=== PATIENT | male | born 1940 | race Hispanic/Latino ===

== ENCOUNTER 2017-08-09 00:21 | Emergency (ER) | payer MEDICARE ==
[~2017-08-09 00:21] MED LIST: ACET-2247 PO; ALLO100T PO; ALPR0.5T PO; AMLO10TA2 PO; BENZ1LOZ68 MM; DOCU100T PO; FURO80TA3 PO; GUAI-1197 PO; ISOS60TA4 PO; LACT10SO9 PO; LORA10TA7 PO; LOSA50TA37 PO; METO-391 PO; MIRT7.5T11 PO; OMEP20TA25 PO; PERID15L MM; PROM25TA7 PO; SPIR25TA4 PO; TAMS-1 PO; TRAM50TA4 PO; TRIA15OI6 TP
[2017-08-09] MEDS ORDERED: ACETAMINOPHEN-CODEINE 300/30MG TAB ONE (01:14)
[2017-08-09 01:20] LABS: BASOPHILS % (AUTO) 0.6 % (0.0-5.0); EOSINOPHILS % (AUTO) 3.1 % (0.0-8.0); HEMATOCRIT 32.6 % (42-54); LYMPHOCYTES % (AUTO) 7.7 % (21.0-51.0); MEAN CORPUSCULAR HEMOGLOBIN 31.2 pg (27.0-33.0); MEAN CORPUSCULAR HGB CONC 34.1 g/dL (32.0-36.0); MEAN CORPUSCULAR VOLUME 91.5 fL (79-99); MONOCYTES % (AUTO) 8.4 % (3.0-13.0); NEUTROPHILS % (AUTO) 80.2 % (40.0-77.0); PLATELET COUNT (AUTO) 158 K/uL (130-400); RED BLOOD CELL COUNT(AUTO) 3.56 MIL/uL (4.50-6.20); RED CELL DISTRIBUTION WIDTH 14.8 % (11.0-15.5); WHITE BLOOD COUNT (AUTO) 11.4 K/uL (4.8-10.8)
[2017-08-09 01:28] LABS: CREATININE 1.7 mg/dL (0.5-1.5); POTASSIUM 3.9 mmol/L (3.5-5.1)
[2017-08-09 01:32] LABS: INR 3.12 (0.85-1.15); PARTIAL THROMBOPLASTIN TIME 43.4 SEC (26.3-35.5)
[2017-08-09] MEDS ORDERED: SODIUM CHLORIDE 0.9% 1000ML 1,000 ML IV ONE (02:19)
== END 2017-08-09 06:01 | disposition home or self-care (01) ==
LOC: EDH 00:21
DX: S70.01XA Contusion of right hip, initial encounter (principal); I11.0 Hypertensive heart disease with heart failure; I50.9 Heart failure, unspecified; E07.9 Disorder of thyroid, unspecified; E11.9 Type 2 diabetes mellitus without complications; Z79.01 Long term (current) use of anticoagulants; Z79.4 Long term (current) use of insulin; I48.91 Unspecified atrial fibrillation; K21.9 Gastro-esophageal reflux disease without esophagitis; W18.39XA Other fall on same level, initial encounter; Y93.01 Activity, walking, marching and hiking; Y92.89 Other specified places as the place of occurrence of the external cause; Y99.8 Other external cause status
CPT/HCPCS: 36415; 70450; 72125; 72192; 73552; 80048; 85025; 85610; 85730; 99285; J7030

== ENCOUNTER → 2017-08-11 | Outpatient (CLI) | payer MEDICARE ==
[~2017-08-11] MED LIST changes: +BENZ-51 PO; +CYCL30DR OP; +FERR1TAB54 PO; +GUAI100S97 PO; +LANO3.5O OP; +LEVO112T7 PO; +MECL-111 PO
== END | disposition home or self-care (01) ==
LOC: OIH 15:54
PROVIDERS: ATTEND Internal Medicine
DX: S89.91XA Unspecified injury of right lower leg, initial encounter (principal); M17.11 Unilateral primary osteoarthritis, right knee; X58.XXXA Exposure to other specified factors, initial encounter; Y93.89 Activity, other specified; Y92.89 Other specified places as the place of occurrence of the external cause; Y99.8 Other external cause status
CPT/HCPCS: 73560

== ENCOUNTER 2017-12-16 20:05 | Inpatient (IN) | payer MEDICARE ==
[~2017-12-16] VITALS: Ht 167.6 cm; Wt 90.3 kg
[~2017-12-16 20:05] MED LIST changes: -BENZ-51 PO; -CYCL30DR OP; -FERR1TAB54 PO; -GUAI100S97 PO; -LANO3.5O OP; -LEVO112T7 PO; -MECL-111 PO; -SPIR25TA4 PO; +SPIR25TA6 PO
[2017-12-16 20:24] LABS: BASOPHILS % (AUTO) 0.7 % (0.0-5.0); EOSINOPHILS % (AUTO) 2.4 % (0.0-8.0); HEMATOCRIT 36.7 % (42-54); LYMPHOCYTES % (AUTO) 9.9 % (21.0-51.0); MEAN CORPUSCULAR HGB CONC 33.3 g/dL (32.0-36.0); MEAN CORPUSCULAR VOLUME 90.1 fL (79-99); MONOCYTES % (AUTO) 10.2 % (3.0-13.0); NEUTROPHILS % (AUTO) 76.8 % (40.0-77.0); PLATELET COUNT (AUTO) 178 K/uL (130-400); RED BLOOD CELL COUNT(AUTO) 4.08 MIL/uL (4.50-6.20); RED CELL DISTRIBUTION WIDTH 16.1 % (11.0-15.5); WHITE BLOOD COUNT (AUTO) 13.6 K/uL (4.8-10.8)
[2017-12-16] MEDS ORDERED: IPRATROPIUM/ALBUTEROL SULFATE 3 ML SOLUTION IH ONE (20:27)
[2017-12-16] MEDS ORDERED: ACETAMINOPHEN-CODEINE ELIXIR 5 ML UDCUP ONE (20:33)
[2017-12-16] MEDS ORDERED: LEVOFLOXACIN 750 MG/D5W 150 ML 150 ML ONE (20:33)
[2017-12-16 20:34] LABS: CARBON DIOXIDE 29 mmol/L (21-32); CHLORIDE 101 mmol/L (101-111); CREATININE 1.7 mg/dL (0.5-1.5); GLOMERULAR FILTR. RATE CALC 42 mL/min (>60); GLUCOSE,RANDOM 102 mg/dL (70-105); SODIUM SERUM 138 mmol/L (136-145); UREA NITROGEN, BLOOD 64 mg/dL (7-18)
[2017-12-16 20:36] LABS: INR 1.08 (0.85-1.15); PARTIAL THROMBOPLASTIN TIME 28.3 SEC (26.3-35.5); PROTHROMBIN TIME 11.3 SEC (9.6-11.6)
[2017-12-16 20:48] LABS: ALANINE AMINOTRANSFERASE 37 U/L (12-78); ALBUMIN 3.4 g/dL (3.5-5.0); ASPARTATE AMINOTRANSFERASE 18 U/L (10-37); BILIRUBIN,TOTAL 0.6 mg/dL (0.2-1.0); CREATINE KINASE MB 1.4 ng/mL (0.5-3.6); CREATINE KINASE, TOTAL 63 U/L (21-232); MYOGLOBIN 127 ng/mL (10-92); TOTAL PROTEIN, SERUM 7.9 g/dL (6.0-8.3); TROPONIN I < 0.04 ng/mL (0.00-0.06)
[2017-12-16 20:54] LABS: APPEARANCE,URINE Clear (CLEAR); BILIRUBIN,URINE Negative (NEGATIVE); COLOR,URINE Yellow (YELLOW); GLUCOSE, URINE (UA) Negative (NEGATIVE); KETONES,URINE Negative (NEGATIVE); LEUKOCYTE ESTERASE ,URINE Negative (NEGATIVE); NITRATE,URINE Negative (NEGATIVE); OCCULT BLOOD,URINE Negative (NEGATIVE); PROTEIN,URINE Negative (NEGATIVE); UROBILINOGEN,URINE 0.2 mg/dL (0.2-1.0)
[2017-12-16] MEDS ORDERED: METHYLPREDNISOLONE SOD SUCC 125MG/2ML VIAL ONE (22:29)
[2017-12-16] MEDS ORDERED: SODIUM CHLORIDE 0.9% 1000ML 1,000 ML IV ONE (23:00)
[2017-12-16 23:21] VITALS: BP 142/93
[2017-12-16] MEDS ORDERED: MINERAL OIL OP PRN (23:30)
[2017-12-16] MEDS ORDERED: ACETAMINOPHEN 325 MG TAB PO PRN (23:30)
[2017-12-16] MEDS ORDERED: TRAMADOL HCL 50 MG TABLET PO PRN (23:30)
[2017-12-16] MEDS ORDERED: DOCUSATE SODIUM 100 MG CAP PO PRN (23:30)
[2017-12-16] MEDS ORDERED: MECLIZINE HCL 25 MG TABLET PO PRN (23:30)
[2017-12-16] MEDS ORDERED: PETROLATUM WHITE OP PRN (23:30)
[2017-12-16] MEDS ORDERED: GUAIFENESIN SUGAR-FREE 100 MG/5 ML UDCUP PO PRN (23:30)
[2017-12-16] MEDS: IPRATROPIUM/ALBUTEROL SULFATE 3 ML SOLUTION IH SCH (23:32)
[2017-12-16] MEDS ORDERED: BENZ-51 PO (23:36)
[2017-12-16] MEDS ORDERED: CYCL30DR OP (23:36)
[2017-12-16] MEDS ORDERED: LORA10TA7 PO (23:36)
[2017-12-16] MEDS ORDERED: FERR1TAB54 PO (23:36)
[2017-12-16] MEDS ORDERED: LANO3.5O OP (23:36)
[2017-12-16] MEDS ORDERED: MECL-111 PO (23:36)
[2017-12-16] MEDS ORDERED: LEVO112T7 PO (23:36)
[2017-12-16] MEDS ORDERED: GUAI100S97 PO (23:36)
[2017-12-16] MEDS: GUAIFENESIN-CODEINE 5 ML SYRUP PO PRN (23:55)
[2017-12-17] MEDS ORDERED: GLUCAGON 1MG KIT 1 MG ML IM PRN
[2017-12-17] MEDS ORDERED: DEXTROSE 50%-WATER 50 ML DISP.SYRIN IV PRN
[2017-12-17 04:20] VITALS: BP 103/40
[2017-12-17 05:06] LABS: HEMATOCRIT 36.3 % (42-54); MEAN CORPUSCULAR HEMOGLOBIN 30.5 pg (27.0-33.0); MEAN CORPUSCULAR HGB CONC 33.6 g/dL (32.0-36.0); MEAN CORPUSCULAR VOLUME 90.9 fL (79-99); PLATELET COUNT (AUTO) 145 K/uL (130-400); RED CELL DISTRIBUTION WIDTH 16.4 % (11.0-15.5); WHITE BLOOD COUNT (AUTO) 11.1 K/uL (4.8-10.8)
[2017-12-17 05:09] LABS: CREATININE 1.6 mg/dL (0.5-1.5); POTASSIUM 3.8 mmol/L (3.5-5.1)
[2017-12-17] MEDS: IPRATROPIUM/ALBUTEROL SULFATE 3 ML SOLUTION IH SCH ×4 (05:51→23:25)
[2017-12-17] MEDS: LEVOTHYROXINE 112 MCG TABLET PO SCH (06:07)
[2017-12-17] MEDS: INSULIN LISPRO 100 UNIT/ML 3ML SQ SCH ×4 (06:08→20:49)
[2017-12-17 07:00] VITALS: BP 132/66
[2017-12-17] MEDS: TAMSULOSIN HCL 0.4 MG CAP.ER.24H PO SCH (08:29)
[2017-12-17] MEDS: AMLODIPINE BESYLATE 5 MG TAB PO SCH (08:29)
[2017-12-17] MEDS: FUROSEMIDE 80 MG TABLET PO SCH ×2 (08:30→20:49)
[2017-12-17] MEDS: PANTOPRAZOLE SODIUM 40 MG TABLET.DR PO SCH (08:30)
[2017-12-17] MEDS: LORATADINE 10 MG TABLET PO SCH (08:30)
[2017-12-17] MEDS: ALLOPURINOL 100 MG TABLET PO SCH (08:31)
[2017-12-17] MEDS: ISOSORBIDE MONO 60 MG TAB.SR PO SCH (08:31)
[2017-12-17] MEDS: ***HM***Metoprolol Succinate 50 MG PO SCH (08:33)
[2017-12-17] MEDS: FERROUS FUMARATE PO SCH (08:34)
[2017-12-17] MEDS: FOLIC ACID PO SCH (08:34)
[2017-12-17] MEDS: ***HM***(Cyclosporine (Restasis) 1 EACH) OP SCH ×2 (08:34→20:50)
[2017-12-17 11:00] VITALS: BP 106/76
[2017-12-17] MEDS: GUAIFENESIN-CODEINE 5 ML SYRUP PO PRN ×2 (11:05→20:57)
[2017-12-17 15:00] VITALS: BP 150/91
[2017-12-17 20:00] VITALS: BP 138/72
[2017-12-17] MEDS: ALPRAZOLAM 0.5 MG TABLET PO SCH (20:49)
[2017-12-17] MEDS: MIRTAZAPINE 15 MG TABLET PO SCH (20:49)
[2017-12-17 23:46] VITALS: BP 124/78
[2017-12-18] MEDS: GUAIFENESIN-CODEINE 5 ML SYRUP PO PRN ×3 (03:16→22:16)
[2017-12-18 03:49] VITALS: BP 148/62
[2017-12-18] MEDS: LEVOTHYROXINE 112 MCG TABLET PO SCH (06:21)
[2017-12-18] MEDS: BENZONATATE 100 MG CAPSULE PO PRN ×2 (06:21→16:49)
[2017-12-18] MEDS: IPRATROPIUM/ALBUTEROL SULFATE 3 ML SOLUTION IH SCH ×4 (06:21→23:24)
[2017-12-18] MEDS: INSULIN LISPRO 100 UNIT/ML 3ML SQ SCH ×4 (06:24→21:00)
[2017-12-18 07:00] VITALS: BP 136/69
[2017-12-18] MEDS: ***HM***Metoprolol Succinate 50 MG PO SCH (09:00)
[2017-12-18] MEDS: ***HM***(Cyclosporine (Restasis) 1 EACH) OP SCH ×2 (09:00→21:00)
[2017-12-18] MEDS: FOLIC ACID PO SCH (09:00)
[2017-12-18] MEDS: FERROUS FUMARATE PO SCH (09:00)
[2017-12-18 12:00] VITALS: BP 153/77
[2017-12-18 16:11] VITALS: BP 142/61
[2017-12-18] MEDS: FUROSEMIDE 80 MG TABLET PO SCH ×2 (16:48→22:15)
[2017-12-18] MEDS: TAMSULOSIN HCL 0.4 MG CAP.ER.24H PO SCH (16:48)
[2017-12-18] MEDS: AMLODIPINE BESYLATE 5 MG TAB PO SCH (16:49)
[2017-12-18] MEDS: ISOSORBIDE MONO 60 MG TAB.SR PO SCH (16:49)
[2017-12-18] MEDS: LORATADINE 10 MG TABLET PO SCH (16:49)
[2017-12-18] MEDS: PANTOPRAZOLE SODIUM 40 MG TABLET.DR PO SCH (16:49)
[2017-12-18] MEDS: ALLOPURINOL 100 MG TABLET PO SCH (16:50)
[2017-12-18] MEDS: PREDNISONE 20 MG TABLET PO SCH (16:50)
[2017-12-18 20:24] VITALS: BP 124/63
[2017-12-18] MEDS: ALPRAZOLAM 0.5 MG TABLET PO SCH (21:00)
[2017-12-18] MEDS: MIRTAZAPINE 15 MG TABLET PO SCH (22:16)
[2017-12-18] MEDS: LEVOFLOXACIN 500 MG/D5W 100 ML 100 ML IV SCH (22:17)
[2017-12-18] MEDS: ENOXAPARIN SODIUM 100 MG/1 ML SQ SCH (22:28)
[2017-12-18 23:00] VITALS: BP 122/77
[2017-12-19 03:44] VITALS: BP 130/65
[2017-12-19 06:18] LABS: INR 1.01 (0.85-1.15); PROTHROMBIN TIME 10.6 SEC (9.6-11.6)
[2017-12-19 06:25] LABS: BILIRUBIN,TOTAL 0.2 mg/dL (0.2-1.0); CREATININE 1.5 mg/dL (0.5-1.5); POTASSIUM 3.9 mmol/L (3.5-5.1); TOTAL PROTEIN, SERUM 7.1 g/dL (6.0-8.3)
[2017-12-19] MEDS: IPRATROPIUM/ALBUTEROL SULFATE 3 ML SOLUTION IH SCH ×3 (06:29→18:08)
[2017-12-19] MEDS: LEVOTHYROXINE 112 MCG TABLET PO SCH (06:50)
[2017-12-19] MEDS: INSULIN LISPRO 100 UNIT/ML 3ML SQ SCH ×4 (06:55→21:58)
[2017-12-19 06:56] LABS: HEMATOCRIT 35.4 % (42-54); MEAN CORPUSCULAR HEMOGLOBIN 30.9 pg (27.0-33.0); MEAN CORPUSCULAR HGB CONC 33.9 g/dL (32.0-36.0); NUCLEATED RED BLOOD CELLS 0.1 % (0.0-0.19); PLATELET COUNT (AUTO) 157 K/uL (130-400); RED BLOOD CELL COUNT(AUTO) 3.89 MIL/uL (4.50-6.20); WHITE BLOOD COUNT (AUTO) 12.1 K/uL (4.8-10.8)
[2017-12-19 08:00] VITALS: BP 145/79
[2017-12-19] MEDS: ***HM***Metoprolol Succinate 50 MG PO SCH (09:00)
[2017-12-19] MEDS: ***HM***(Cyclosporine (Restasis) 1 EACH) OP SCH ×2 (09:00→21:00)
[2017-12-19] MEDS: FERROUS FUMARATE PO SCH (09:00)
[2017-12-19] MEDS: FOLIC ACID PO SCH (09:00)
[2017-12-19] MEDS: GUAIFENESIN-CODEINE 5 ML SYRUP PO PRN ×3 (09:43→21:56)
[2017-12-19] MEDS: ISOSORBIDE MONO 60 MG TAB.SR PO SCH (09:44)
[2017-12-19] MEDS: ALLOPURINOL 100 MG TABLET PO SCH (09:44)
[2017-12-19] MEDS: PANTOPRAZOLE SODIUM 40 MG TABLET.DR PO SCH (09:44)
[2017-12-19] MEDS: PREDNISONE 20 MG TABLET PO SCH (09:44)
[2017-12-19] MEDS: TAMSULOSIN HCL 0.4 MG CAP.ER.24H PO SCH (09:44)
[2017-12-19] MEDS: AMLODIPINE BESYLATE 5 MG TAB PO SCH (09:45)
[2017-12-19] MEDS: FUROSEMIDE 80 MG TABLET PO SCH ×2 (09:45→21:55)
[2017-12-19] MEDS: LORATADINE 10 MG TABLET PO SCH (09:45)
[2017-12-19] MEDS: ENOXAPARIN SODIUM 100 MG/1 ML SQ SCH (09:46)
[2017-12-19 11:56] VITALS: BP 143/60
[2017-12-19 16:33] VITALS: BP 149/76
[2017-12-19] MEDS: WARFARIN SODIUM 2.5 MG TAB PO SCH (16:56)
[2017-12-19 20:30] VITALS: BP 129/62
[2017-12-19] MEDS: MIRTAZAPINE 15 MG TABLET PO SCH (21:55)
[2017-12-19] MEDS: ALPRAZOLAM 0.5 MG TABLET PO SCH (21:56)
[2017-12-19 23:00] VITALS: BP 138/66
[2017-12-20] MEDS: IPRATROPIUM/ALBUTEROL SULFATE 3 ML SOLUTION IH SCH ×4 (00:44→18:09)
[2017-12-20 04:23] VITALS: BP 140/58
[2017-12-20 05:55] LABS: INR 1.01 (0.85-1.15); PROTHROMBIN TIME 10.6 SEC (9.6-11.6)
[2017-12-20] MEDS: LEVOTHYROXINE 112 MCG TABLET PO SCH (06:52)
[2017-12-20] MEDS: INSULIN LISPRO 100 UNIT/ML 3ML SQ SCH ×4 (06:53→20:57)
[2017-12-20 08:12] VITALS: BP 153/62
[2017-12-20] MEDS: ***HM***(Cyclosporine (Restasis) 1 EACH) OP SCH ×2 (09:00→21:00)
[2017-12-20] MEDS: ALLOPURINOL 100 MG TABLET PO SCH (10:10)
[2017-12-20] MEDS: ENOXAPARIN SODIUM 100 MG/1 ML SQ SCH (10:10)
[2017-12-20] MEDS: TAMSULOSIN HCL 0.4 MG CAP.ER.24H PO SCH (10:10)
[2017-12-20] MEDS: FUROSEMIDE 80 MG TABLET PO SCH ×2 (10:10→20:55)
[2017-12-20] MEDS: AMLODIPINE BESYLATE 5 MG TAB PO SCH (10:11)
[2017-12-20] MEDS: PREDNISONE 20 MG TABLET PO SCH (10:11)
[2017-12-20] MEDS: LORATADINE 10 MG TABLET PO SCH (10:11)
[2017-12-20] MEDS: FOLIC ACID PO SCH (10:11)
[2017-12-20] MEDS: ISOSORBIDE MONO 60 MG TAB.SR PO SCH (10:11)
[2017-12-20] MEDS: FERROUS FUMARATE PO SCH (10:11)
[2017-12-20] MEDS: PANTOPRAZOLE SODIUM 40 MG TABLET.DR PO SCH (10:11)
[2017-12-20] MEDS: ***HM***Metoprolol Succinate 50 MG PO SCH (10:16)
[2017-12-20 12:00] VITALS: BP 148/62
[2017-12-20 16:00] VITALS: BP 143/71
[2017-12-20] MEDS: WARFARIN SODIUM 2.5 MG TAB PO SCH (16:38)
[2017-12-20 19:00] VITALS: BP 151/65
[2017-12-20] MEDS: ALPRAZOLAM 0.5 MG TABLET PO SCH (20:54)
[2017-12-20] MEDS: MIRTAZAPINE 15 MG TABLET PO SCH (20:55)
[2017-12-20] MEDS: LEVOFLOXACIN 500 MG/D5W 100 ML 100 ML IV SCH (20:55)
[2017-12-21] VITALS: BP 137/62
[2017-12-21] MEDS: IPRATROPIUM/ALBUTEROL SULFATE 3 ML SOLUTION IH SCH ×5 (00:37→23:34)
[2017-12-21 04:00] VITALS: BP 144/61
[2017-12-21] MEDS: INSULIN LISPRO 100 UNIT/ML 3ML SQ SCH ×4 (06:23→20:53)
[2017-12-21 06:37] LABS: PROTHROMBIN TIME 10.5 SEC (9.6-11.6)
[2017-12-21] MEDS: LEVOTHYROXINE 112 MCG TABLET PO SCH (06:37)
[2017-12-21 08:00] VITALS: BP 148/75
[2017-12-21] MEDS: ***HM***(Cyclosporine (Restasis) 1 EACH) OP SCH ×2 (09:00→21:00)
[2017-12-21] MEDS: PANTOPRAZOLE SODIUM 40 MG TABLET.DR PO SCH (09:49)
[2017-12-21] MEDS: AMLODIPINE BESYLATE 5 MG TAB PO SCH (09:49)
[2017-12-21] MEDS: PREDNISONE 20 MG TABLET PO SCH (09:49)
[2017-12-21] MEDS: ALLOPURINOL 100 MG TABLET PO SCH (09:49)
[2017-12-21] MEDS: LORATADINE 10 MG TABLET PO SCH (09:49)
[2017-12-21] MEDS: ISOSORBIDE MONO 60 MG TAB.SR PO SCH (09:50)
[2017-12-21] MEDS: FUROSEMIDE 80 MG TABLET PO SCH ×2 (09:50→20:46)
[2017-12-21] MEDS: TAMSULOSIN HCL 0.4 MG CAP.ER.24H PO SCH (09:52)
[2017-12-21] MEDS: FERROUS FUMARATE 324 MG TABLET PO SCH (09:55)
[2017-12-21] MEDS: ENOXAPARIN SODIUM 100 MG/1 ML SQ SCH (09:57)
[2017-12-21] MEDS: FAMOTIDINE 20MG TAB 20 MG TAB PO SCH (09:58)
[2017-12-21 12:00] VITALS: BP 118/74
[2017-12-21 16:00] VITALS: BP 127/58
[2017-12-21] MEDS: WARFARIN SODIUM 2.5 MG TAB PO SCH (16:37)
[2017-12-21] MEDS: GUAIFENESIN-CODEINE 5 ML SYRUP PO PRN (18:54)
[2017-12-21 19:00] VITALS: BP 133/78
[2017-12-21] MEDS: METOPROLOL TARTRATE 25 MG TAB PO SCH (20:45)
[2017-12-21] MEDS: MIRTAZAPINE 15 MG TABLET PO SCH (20:51)
[2017-12-21] MEDS: ALPRAZOLAM 0.5 MG TABLET PO SCH (21:00)
[2017-12-22] VITALS: BP 141/64
[2017-12-22 04:00] VITALS: BP 140/62
[2017-12-22 05:55] LABS: HEMATOCRIT 36.9 % (42-54); MEAN CORPUSCULAR HEMOGLOBIN 30.2 pg (27.0-33.0); MEAN CORPUSCULAR HGB CONC 33.6 g/dL (32.0-36.0); MEAN CORPUSCULAR VOLUME 89.9 fL (79-99); PLATELET COUNT (AUTO) 136 K/uL (130-400); RED CELL DISTRIBUTION WIDTH 16.5 % (11.0-15.5); WHITE BLOOD COUNT (AUTO) 11.5 K/uL (4.8-10.8)
[2017-12-22] MEDS: LEVOTHYROXINE 112 MCG TABLET PO SCH (06:05)
[2017-12-22] MEDS: INSULIN LISPRO 100 UNIT/ML 3ML SQ SCH ×4 (06:08→22:08)
[2017-12-22 06:16] LABS: CREATININE 1.4 mg/dL (0.5-1.5); POTASSIUM 3.5 mmol/L (3.5-5.1)
[2017-12-22 06:17] LABS: INR 0.98 (0.85-1.15); PROTHROMBIN TIME 10.3 SEC (9.6-11.6)
[2017-12-22] MEDS: IPRATROPIUM/ALBUTEROL SULFATE 3 ML SOLUTION IH SCH ×3 (06:32→19:36)
[2017-12-22 08:00] VITALS: BP 146/64
[2017-12-22] MEDS: PREDNISONE 20 MG TABLET PO SCH (08:32)
[2017-12-22] MEDS: AMLODIPINE BESYLATE 5 MG TAB PO SCH (08:32)
[2017-12-22] MEDS: FERROUS FUMARATE 324 MG TABLET PO SCH (08:32)
[2017-12-22] MEDS: ALLOPURINOL 100 MG TABLET PO SCH (08:32)
[2017-12-22] MEDS: FUROSEMIDE 80 MG TABLET PO SCH ×2 (08:33→22:00)
[2017-12-22] MEDS: TAMSULOSIN HCL 0.4 MG CAP.ER.24H PO SCH (08:33)
[2017-12-22] MEDS: METOPROLOL TARTRATE 25 MG TAB PO SCH ×2 (08:34→22:00)
[2017-12-22] MEDS: ISOSORBIDE MONO 60 MG TAB.SR PO SCH (08:34)
[2017-12-22] MEDS: FAMOTIDINE 20MG TAB 20 MG TAB PO SCH (08:34)
[2017-12-22] MEDS: ENOXAPARIN SODIUM 100 MG/1 ML SQ SCH (08:35)
[2017-12-22] MEDS: ***HM***(Cyclosporine (Restasis) 1 EACH) OP SCH ×2 (09:00→21:00)
[2017-12-22 11:30] VITALS: BP 123/58
[2017-12-22] MEDS: LORATADINE 10 MG TABLET PO SCH (11:44)
[2017-12-22 16:00] VITALS: BP 131/63
[2017-12-22] MEDS: WARFARIN SODIUM 2.5 MG TAB PO SCH (16:19)
[2017-12-22 20:00] VITALS: BP 135/66
[2017-12-22] MEDS: MIRTAZAPINE 15 MG TABLET PO SCH (22:00)
[2017-12-22] MEDS: LEVOFLOXACIN 500 MG/D5W 100 ML 100 ML IV SCH (22:00)
[2017-12-22] MEDS: ALPRAZOLAM 0.5 MG TABLET PO SCH (22:07)
[2017-12-23] VITALS: BP 125/60
[2017-12-23] MEDS: IPRATROPIUM/ALBUTEROL SULFATE 3 ML SOLUTION IH SCH ×3 (00:05→11:10)
[2017-12-23 04:00] VITALS: BP 153/62
[2017-12-23 04:30] LABS: MEAN CORPUSCULAR HGB CONC 35.5 g/dL (32.0-36.0); MEAN CORPUSCULAR VOLUME 90.1 fL (79-99); PLATELET COUNT (AUTO) 157 K/uL (130-400); RED BLOOD CELL COUNT(AUTO) 3.99 MIL/uL (4.50-6.20); RED CELL DISTRIBUTION WIDTH 16.4 % (11.0-15.5); WHITE BLOOD COUNT (AUTO) 11.5 K/uL (4.8-10.8)
[2017-12-23 04:42] LABS: INR 1.09 (0.85-1.15); PARTIAL THROMBOPLASTIN TIME 30.6 SEC (26.3-35.5); PROTHROMBIN TIME 11.4 SEC (9.6-11.6)
[2017-12-23] MEDS: INSULIN LISPRO 100 UNIT/ML 3ML SQ SCH ×2 (06:44→11:50)
[2017-12-23] MEDS: LEVOTHYROXINE 112 MCG TABLET PO SCH (06:44)
[2017-12-23 07:00] VITALS: BP 130/60
[2017-12-23] MEDS: FERROUS FUMARATE 324 MG TABLET PO SCH (09:00)
[2017-12-23] MEDS: ***HM***(Cyclosporine (Restasis) 1 EACH) OP SCH (09:00)
[2017-12-23] MEDS: PREDNISONE 20 MG TABLET PO SCH (09:19)
[2017-12-23] MEDS: AMLODIPINE BESYLATE 5 MG TAB PO SCH (09:20)
[2017-12-23] MEDS: FUROSEMIDE 80 MG TABLET PO SCH (09:20)
[2017-12-23] MEDS: FAMOTIDINE 20MG TAB 20 MG TAB PO SCH (09:20)
[2017-12-23] MEDS: LORATADINE 10 MG TABLET PO SCH (09:20)
[2017-12-23] MEDS: TAMSULOSIN HCL 0.4 MG CAP.ER.24H PO SCH (09:20)
[2017-12-23] MEDS: ALLOPURINOL 100 MG TABLET PO SCH (09:20)
[2017-12-23] MEDS: ISOSORBIDE MONO 60 MG TAB.SR PO SCH (09:21)
[2017-12-23] MEDS: METOPROLOL TARTRATE 25 MG TAB PO SCH (09:21)
[2017-12-23] MEDS: ENOXAPARIN SODIUM 100 MG/1 ML SQ SCH (09:22)
[2017-12-23 11:00] VITALS: BP 130/59
[2017-12-23] MEDS ORDERED: WARFARIN SODIUM 10 MG TABLET PO ONE (16:00)
== END 2017-12-23 14:30 | DRG 193 ==
LOC: EDH 20:05 → OBSVTOIN 22:08 → EDHIP 22:08 → 3AH 23:03
PROVIDERS: ADMIT Internal Medicine; ATTEND Internal Medicine
DX: J18.9 Pneumonia, unspecified organism (principal); J96.90 Respiratory failure, unspecified, unspecified whether with hypoxia or hypercapnia; J44.0 Chronic obstructive pulmonary disease with (acute) lower respiratory infection; J44.1 Chronic obstructive pulmonary disease with (acute) exacerbation; D68.9 Coagulation defect, unspecified; I11.0 Hypertensive heart disease with heart failure; E11.65 Type 2 diabetes mellitus with hyperglycemia; I50.9 Heart failure, unspecified; I25.10 Atherosclerotic heart disease of native coronary artery without angina pectoris; E03.9 Hypothyroidism, unspecified; F03.90 Unspecified dementia, unspecified severity, without behavioral disturbance, psychotic disturbance, mood disturbance, and anxiety; I48.91 Unspecified atrial fibrillation; K21.9 Gastro-esophageal reflux disease without esophagitis; R13.10 Dysphagia, unspecified; Z95.2 Presence of prosthetic heart valve; Z79.01 Long term (current) use of anticoagulants; Z86.73 Personal history of transient ischemic attack (TIA), and cerebral infarction without residual deficits
CPT/HCPCS: 36415; 71045; 74230; 80048; 80053; 81003; 82550; 82553; 82948; 83605; 83874; 83880; 84484; 85025; 85027; 85610; 85730; 87040; 87088; 92526; 92611; 93005; 94640; 94664; 97039; J1650; J1956; J2930; J7030

== ENCOUNTER 2018-05-31 10:57 | Emergency (ER) | payer MEDICARE ==
[~2018-05-31 10:57] MED LIST changes: -AMLO10TA2 PO; +AMLO10TA6 PO; +BENZ-51 PO; -BENZ1LOZ68 MM; +CYCL30DR OP; +FERR1TAB54 PO; -GUAI-1197 PO; +GUAI100S97 PO; -LACT10SO9 PO; +LANO3.5O OP; +LEVO112T7 PO; -LOSA50TA37 PO; +MECL-111 PO; -PERID15L MM; -PROM25TA7 PO; -SPIR25TA6 PO; -TRIA15OI6 TP
[2018-05-31] MEDS ORDERED: OXYCODONE/ACETAMIN 5/325MG TAB ONE ×2 (11:17→11:46)
[2018-05-31 12:19] LABS: APPEARANCE,URINE CLEAR (CLEAR); BILIRUBIN,URINE NEGATIVE (NEGATIVE); COLOR,URINE YELLOW (YELLOW); GLUCOSE, URINE (UA) NEGATIVE (NEGATIVE); KETONES,URINE NEGATIVE (NEGATIVE); LEUKOCYTE ESTERASE ,URINE NEGATIVE (NEGATIVE); NITRATE,URINE NEGATIVE (NEGATIVE); OCCULT BLOOD,URINE SMALL (NEGATIVE); PH,URINE 6.5 (5.0-8.0); PROTEIN,URINE NEGATIVE (NEGATIVE); UROBILINOGEN,URINE 0.2 mg/dL (0.2-1.0)
[2018-05-31 12:55] LABS: BACTERIA,URINE Rare /HPF (None Seen); RBC,URINE 0-1 /HPF (0-1); SQUAMOUS EPITHELIAL CELL,UR Few /HPF (0-2); WBC,URINE None Seen /HPF (0-1)
== END 2018-05-31 15:17 | disposition home or self-care (01) ==
LOC: EDH 10:57
DX: S39.012A Strain of muscle, fascia and tendon of lower back, initial encounter (principal); I10 Essential (primary) hypertension; E07.9 Disorder of thyroid, unspecified; I48.91 Unspecified atrial fibrillation; I11.0 Hypertensive heart disease with heart failure; I50.9 Heart failure, unspecified; E11.9 Type 2 diabetes mellitus without complications; K21.9 Gastro-esophageal reflux disease without esophagitis; Z79.4 Long term (current) use of insulin; Z87.891 Personal history of nicotine dependence; W18.39XA Other fall on same level, initial encounter; Y93.89 Activity, other specified; Y92.89 Other specified places as the place of occurrence of the external cause; Y99.8 Other external cause status
CPT/HCPCS: 72131; 81001

== ENCOUNTER 2018-07-22 23:27 | Emergency (ER) | payer MEDICARE ==
[~2018-07-22 23:27] MED LIST changes: -AMLO10TA6 PO; +AMLO10TA7 PO
[2018-07-22] MEDS ORDERED: IPRATROPIUM/ALBUTEROL SULFATE 3 ML SOLUTION IH ONE (23:40)
[2018-07-22] MEDS ORDERED: ACETAMINOPHEN-CODEINE 300/30MG TAB ONE (23:42)
[2018-07-23 00:16] LABS: BASOPHILS % (AUTO) 0.4 % (0.0-5.0); EOSINOPHILS % (AUTO) 0.4 % (0.0-8.0); HEMATOCRIT 37.8 % (42-54); LYMPHOCYTES % (AUTO) 4.7 % (21.0-51.0); MEAN CORPUSCULAR HEMOGLOBIN 30.6 pg (27.0-33.0); MEAN CORPUSCULAR HGB CONC 33.4 g/dL (32.0-36.0); MEAN CORPUSCULAR VOLUME 91.7 fL (79-99); MONOCYTES % (AUTO) 3.3 % (3.0-13.0); NEUTROPHILS % (AUTO) 91.2 % (40.0-77.0); PLATELET COUNT (AUTO) 137 K/uL (130-400); RED BLOOD CELL COUNT(AUTO) 4.13 MIL/uL (4.50-6.20); RED CELL DISTRIBUTION WIDTH 15.3 % (11.0-15.5); WHITE BLOOD COUNT (AUTO) 11.8 K/uL (4.8-10.8)
[2018-07-23 00:29] LABS: CREATININE 1.5 mg/dL (0.5-1.5); POTASSIUM 4.5 mmol/L (3.5-5.1)
[2018-07-23 00:36] LABS: B-TYPE NATRIURETIC PEPTIDE 277 pg/mL (0-100)
[2018-07-23 00:42] LABS: ALBUMIN 3.4 g/dL (3.5-5.0); BILIRUBIN,TOTAL 0.5 mg/dL (0.2-1.0); TOTAL PROTEIN, SERUM 7.7 g/dL (6.0-8.3)
== END 2018-07-23 03:12 | disposition home or self-care (01) ==
LOC: EDH 23:27
DX: J06.9 Acute upper respiratory infection, unspecified (principal); I11.0 Hypertensive heart disease with heart failure; I50.9 Heart failure, unspecified; E11.9 Type 2 diabetes mellitus without complications; I48.91 Unspecified atrial fibrillation; K21.9 Gastro-esophageal reflux disease without esophagitis; E07.9 Disorder of thyroid, unspecified; Z98.890 Other specified postprocedural states
CPT/HCPCS: 36415; 71045; 80053; 83605; 83880; 84484; 85025; 93005; 94640

== ENCOUNTER → 2018-07-29 | Outpatient (CLI) | payer MEDICARE | END | disposition home or self-care (01) | LOC: OIH 10:50 | PROVIDERS: ATTEND Internal Medicine | DX: I11.0 Hypertensive heart disease with heart failure (principal); I50.9 Heart failure, unspecified; J06.9 Acute upper respiratory infection, unspecified | CPT/HCPCS: 71046 ==

== ENCOUNTER 2019-01-11 15:10 | Emergency (ER) | payer MEDICARE ==
[2019-01-11 16:13] LABS: CREATININE 1.4 mg/dL (0.5-1.5); POTASSIUM 4.1 mmol/L (3.5-5.1)
[2019-01-11 16:17] LABS: PARTIAL THROMBOPLASTIN TIME 46.4 SEC (26.3-35.5)
[2019-01-11 16:20] LABS: ALBUMIN 3.3 g/dL (3.5-5.0); BILIRUBIN,TOTAL 0.9 mg/dL (0.2-1.0); TOTAL PROTEIN, SERUM 7.1 g/dL (6.0-8.3)
[2019-01-11 16:26] LABS: BASOPHILS % (AUTO) 0.3 % (0.0-5.0); EOSINOPHILS % (AUTO) 2.3 % (0.0-8.0); HEMATOCRIT 33.6 % (42-54); LYMPHOCYTES % (AUTO) 6.9 % (21.0-51.0); MEAN CORPUSCULAR HEMOGLOBIN 31.5 pg (27.0-33.0); MEAN CORPUSCULAR HGB CONC 33.5 g/dL (32.0-36.0); MONOCYTES % (AUTO) 9.1 % (3.0-13.0); NEUTROPHILS % (AUTO) 81.4 % (40.0-77.0); NUCLEATED RED BLOOD CELLS 0.2 % (0.0-0.19); PLATELET COUNT (AUTO) 116 K/uL (130-400); RED BLOOD CELL COUNT(AUTO) 3.58 MIL/uL (4.50-6.20); RED CELL DISTRIBUTION WIDTH 15.6 % (11.0-15.5)
[2019-01-11 16:27] LABS: INR 3.65 (0.85-1.15); PROTHROMBIN TIME 37.4 SEC (9.6-11.6)
== END 2019-01-12 01:48 | disposition home or self-care (01) ==
LOC: EDH 15:10
DX: S30.1XXA Contusion of abdominal wall, initial encounter (principal); S40.021A Contusion of right upper arm, initial encounter; I48.91 Unspecified atrial fibrillation; I11.0 Hypertensive heart disease with heart failure; I50.9 Heart failure, unspecified; I25.10 Atherosclerotic heart disease of native coronary artery without angina pectoris; E11.9 Type 2 diabetes mellitus without complications; E07.9 Disorder of thyroid, unspecified; K21.9 Gastro-esophageal reflux disease without esophagitis; Z86.73 Personal history of transient ischemic attack (TIA), and cerebral infarction without residual deficits; Z98.61 Coronary angioplasty status; Z95.2 Presence of prosthetic heart valve; Z79.899 Other long term (current) drug therapy; Z79.01 Long term (current) use of anticoagulants; Z87.891 Personal history of nicotine dependence; W18.39XA Other fall on same level, initial encounter; Y93.89 Activity, other specified; Y92.89 Other specified places as the place of occurrence of the external cause; Y99.8 Other external cause status
CPT/HCPCS: 36415; 71045; 80053; 85025; 85610; 85730; 93005